=== PATIENT | female | born 1950 | race African-American/Black ===

== ENCOUNTER 2016-09-25 13:56 | Emergency (ER) ==
[2016-09-25 14:27] LABS: URINE CULTURE PL NEEDED? NO; URINE SOURCE CLEAN CATCH
[2016-09-25 14:39] LABS: BILIRUBIN URINE NEGATIVE (NEGATIVE); BLOOD URINE NEGATIVE (NEGATIVE); CLARITY CLEAR (CLEAR); COLOR YELLOW; LEUKOCYTES URINE NEGATIVE (NEGATIVE); NITRITE URINE NEGATIVE (NEGATIVE); PROTEIN URINE NEGATIVE (NEGATIVE); SP GRAVITY URINE 1.015; UROBILINOGEN URINE 1+(1 mg/dL)
[2016-09-25 14:50] LABS: URINE EPITHELIAL CELLS <10 /HPF (<10)
--- NOTE | 2016-09-25 15:06 | PROVIDER DOCUMENTATION ---
HPI-Abdominal Pain/GI Problem <Filippo Lancaster - Last Filed: 09/25/16 16:51> - General Source: patient, family - History of Present Illness-ABD Nature of Presenting Problems: pt is a 66 y/o f present to the er with c/o stomach pain. pt states this stomach pain started a couple of days ago but has gotten worse when she woke up this morning.the pain comes and goes. pt is a smoker. family states she has not been drinking enough water. pt is crying while lying in the bed. family at bedside. pt denies fever, chills, hematuria, hx of kidney stones. Pt states when she goes to the rest room if feels like she has to pee alot but its only a little bit that comes out. Abdominal Pain Onset Location: reports: RLQ, LLQ Pain Radiation: reports: back Quality of Pain: reports: aching Severity in ED: reports: moderate Onset/Duration: reports: 2 days ago Timing: reports: still present, intermittent Activities at Onset: reports: none Exposure to sick contacts?: No Modifying Factors: improves with: nothing Associated Symptoms: reports: back/neck pain. denies: cough, diaphoresis, diarrhea, dizziness, fever/chills Last BM: last night Similar Symptoms Previously?: No Recently seen or treated by another doctor?: No <Betsey Rodríguez - Last Filed: 09/25/16 16:52> - General Chief Complaint: Abdominal Pain Stated Complaint: ABD PAIN Time Seen by Provider: 09/25/16 15:00 Allergies/Adverse Reactions: Patient Allergies Allergy/AdvReac Type Severity Reaction Status Date / Time morphine Allergy ITCHING Verified 12/10/13 10:01 Penicillins Allergy ITCHING Verified 12/10/13 10:01 Home Medications: Home Medication List Medication Instructions Recorded Confirmed Last Taken Type Hydrochlorothiazide 25 mg PO DAILY 12/10/13 09/25/16 12/09/13 21:30 History Levothyroxine [Synthroid] 75 microgm PO DAILY 12/10/13 09/25/16 12/09/13 21:30 History Omeprazole [Prilosec] 20 mg PO DAILY 12/10/13 09/25/16 12/09/13 21:30 History Ramipril 20 mg PO DAILY 12/10/13 09/25/16 12/09/13 21:30 History Albuterol Sulfate Inhaler 2 puff INH Q6H PRN PRN #1 inhaler 09/07/15 09/25/16 Unknown Rx [Ventolin Hfa] Acetaminophen with Codeine 1 each PO Q4H PRN PRN #20 tablet 09/25/16 Unknown Rx [Tylenol with Codeine #3] Bupropion S.r. [Wellbutrin Sr] 100 mg PO DAILY 09/25/16 09/25/16 Unknown History Ciprofloxacin HCl [Cipro] 500 mg PO BID #20 tablet 09/25/16 Unknown Rx Donepezil [Aricept] 10 mg PO DAILY 09/25/16 09/25/16 Unknown History Metronidazole [Flagyl] 500 mg PO TID #30 tablet 09/25/16 Unknown Rx Nitrofurantoin Monohyd/M-Cryst 100 mg PO BID 09/25/16 09/25/16 Unknown History [Macrobid 100 mg Capsule] PRAVAstatin [Pravachol] 40 mg PO HS 09/25/16 09/25/16 Unknown History Tramadol [Ultram] 50 mg PO Q8HR 09/25/16 09/25/16 Unknown History Review of Systems - Adult - REVIEW OF SYSTEMS - ADULT Constitutional: denies: chills, fever, fatique Eyes: reports: no symptoms reported Ears, Nose, Mouth & Throat: reports: no symptoms reported Cardiovascular: reports: no symptoms reported Respiratory: reports: no symptoms reported Gastrointestinal: reports: abdominal pain. denies: hematemesis, diarrhea, difficulty swallowing, rectal bleeding, vomiting Genitourinary: reports: frequency, urgency. denies: dysuria, discharge, hematuria Musculoskeletal: reports: no symptoms reported Integumentary: reports: no symptoms reported Neurological: reports: no symptoms reported Psychiatric: reports: no symptoms reported Endocrine: reports: no symptoms reported Hematologic/Lymphatic: reports: no symptoms reported Allergic/Immunologic: reports: no symptoms reported All Other Systems: Reviewed and Negative <Betsey Rodríguez - Last Filed: 09/25/16 16:52> Past History - Adult - PAST MEDICAL HISTORY-ADULT Review of Records: reports: Old Records Reviewed, Nursing Assessment Review, Medications Reviewed, Social history reviewed & non-contributory. <Filippo Lancaster - Last Filed: 09/25/16 16:51> - PAST MEDICAL HISTORY-ADULT Review of Records: reports: Nursing Assessment Review Major Childhood Illnesses: reports: denies history Cardiovascular: reports: HTN, hyperlipidemia Gastrointestinal: reports: cancer (stomach cancer; malt lymphoma, adenocarcinoma ), GERD Endocrine/Immune: reports: Diabetes - IMMUNIZATION STATUS Childhood Immunizations: See Nurse Assessment Flu Vaccine: See Nurse Assessment - SOCIAL HISTORY Smoking: cigarettes, greater than 1 pack/day Provider spent 3-5 mins advising pt. on dangers of tobacco.: Discussed manners to quit use, and f/u contacts for add'l counseling. Substance Use: none/never Alcohol Use Frequency: never <Betsey Rodríguez - Last Filed: 09/25/16 16:52> Physical Exam-General - PHYSICAL EXAM-ADULT Initial Vital Signs Reviewed: Yes - CONSTITUTIONAL General Appearance: appears well, alert, mild distress - EYES Eyes: PERRL/EOMI, pink conjunctivae - HEAD, EARS, NOSE, MOUTH & THROAT HENMT: moist mucous membranes, normal ENT inspection - NECK Neck: non-tender, full range of motion - RESPIRATORY Respiratory: chest non-tender, lungs clear, normal breath sounds, no pleuratic chest pain, no respiratory distress, no accessory muscle use - CARDIOVASCULAR Cardiovascular: normal peripheral pulses, regular rate, rhythm - GASTROINTESTINAL (ABDOMEN) Abdominal Exam: normal bowel sounds, non tender, soft, tenderness (TTP lower abdomen) - MUSCULOSKELETAL Extremity: normal range of motion, non-tender, normal gait, normal inspection, no pedal edema, no calf tenderness, normal capillary refill - SKIN Integumentary: normal color, normal turgor, warm/dry - NEUROLOGIC Neurologic: grossly normal, no motor/sensory deficits - PSYCHIATRIC Psych/Mental Status: normal mood/affect, normal thought content, normal thought process, oriented x 3, tearful <Betsey Rodríguez - Last Filed: 09/25/16 16:52> Progress - PLAN OF CARE/RESULTS Progress/Plan/Lab Results: Laboratory Tests 09/25/16 14:11 Urine Source CLEAN CATCH Urine Color YELLOW Urine Clarity CLEAR Urine pH 5.0 Ur Specific [place] 1.015 Urine Protein NEGATIVE Urine Ketones NEGATIVE Urine Blood NEGATIVE Urine Nitrite NEGATIVE Urine Bilirubin NEGATIVE Urine Urobilinogen 1+(1 mg/dL) Urine Microscopic RBC Not Reportable Urine WBC NEGATIVE Ur Epithelial Cells <10 Urine Bacteria 1+ Urine Glucose 3+(500 mg/dL) A Orders Category Date Time Status FLAT/UPRIGHT ABD/1 VIEW CHEST [RAD] Stat Exams 09/25/16 14:59 Taken AMYLASE [CHEM] Stat Lab 09/25/16 14:58 Ordered CBC WITH DIFF [HEME] Stat Lab 09/25/16 14:58 Ordered COMPREHENSIVE METABOLIC PANEL [CHEM] Stat Lab 09/25/16 14:58 Ordered LIPASE [CHEM] Stat Lab 09/25/16 14:[address] W/POSS RFLX CULT [URINALYSIS] Stat Lab 09/25/16 14:[address] W/POSS RFLX CULT [URINALYSIS] Stat Lab 09/25/16 15:06 Ordered URINE DRUG SCREEN PL Stat Lab 09/25/16 15:06 Ordered Vital Signs - 24 hr 09/25/16 14:02 Temperature 97.9 F Pulse Rate 93 H Respiratory 18 Rate Blood Pressure 122/77 O2 Sat by Pulse 100 Oximetry spoke with pt and family about current lab result. Pt and family trying to come up with the list of all her medications that she takes. Called her pharmacy to get a list. Laboratory Tests 09/25/16 09/25/16 09/25/16 14:11 15:20 15:20 WBC 4.24 L RBC 3.80 L Hgb 13.9 Hct 40.7 MCV 107.1 H MCH 36.6 H MCHC 34.2 RDW Std Deviation 15.5 H Plt Count 136 MPV 9.5 Immature Gran % (Auto) 0.0 Neut % (Auto) 54.0 Lymph % (Auto) 31.8 [place] % (Auto) 11.6 H Eos % (Auto) 2.4 Baso % (Auto) 0.2 Immature Gran # (Auto) 0.00 Neut # (Auto) 2.29 Lymph # (Auto) 1.35 [place] # (Auto) 0.49 Eos # (Auto) 0.10 Baso # (Auto) 0.01 Segmented Neutrophils 44 Lymphocytes 34 Monocytes 15 H Eosinophils 2 Atypical Lymphocytes 5.0 Anisocytosis OCCASIONAL Macrocytosis 2+ Sodium 139 Potassium 3.5 Chloride 99 Carbon Dioxide 30 Anion Gap 10 BUN 16 Creatinine 1.1 H Estimated GFR/1.73 m2 50 BUN/Creatinine Ratio 15 Glucose 140 H Calculated Osmolality 281 Calcium 10.3 H Total Bilirubin 0.40 AST 23 ALT 17 Alkaline Phosphatase 100 Total Protein 7.5 Albumin 4.6 Globulin 3.0 Albumin/Globulin Ratio 2.0 Amylase 80 Lipase 32 Urine Source CLEAN CATCH Urine Color YELLOW Urine Clarity CLEAR Urine pH 5.0 Ur Specific [place] 1.015 Urine Protein NEGATIVE Urine Ketones NEGATIVE Urine Blood NEGATIVE Urine Nitrite NEGATIVE Urine Bilirubin NEGATIVE Urine Urobilinogen 1+(1 mg/dL) Urine Microscopic RBC Not Reportable Urine WBC NEGATIVE Ur Epithelial Cells <10 Urine Bacteria 1+ Urine Glucose 3+(500 mg/dL) A - XRAY 1 XRAY: Bilateral XRAY Study: Abdomen (The lungs are well expanded. patient has a left-sided port- a catheter. Heart is enlarged. no pneumothorax) Impression: Normal - CT/MRI 1 CT Study: Kidneys (Renal stone search) Impression: Abnormal (No renal stone, no hydronephrosis, apparent mild diverticulitis at mid sigmoid colon;no abcscess, no free air) - ULTRASOUND (By Radiology) 1 US Study: other (carotid) Impression: Normal (no stenosis within either CCA or ICA) <Betsey Rodríguez - Last Filed: 09/25/16 16:52> Departure - Departure Time of Disposition Order: 16:49 Certified Medical Emergency: Emergent <Filippo Lancaster - Last Filed: 09/25/16 16:51> - Departure Certified Medical Emergency: Emergent <Betsey Rodríguez - Last Filed: 09/25/16 16:52> - Departure DIAGNOSIS: Diverticulitis Qualifiers: Diverticulitis site: large intestine Diverticulitis bleeding: without bleeding Diverticulitis complication: without perforation or abscess Qualified Code(s): K57.32 - Diverticulitis of large intestine without perforation or abscess without bleeding Disposition: HOME 01 Condition: Stable Additional Instructions: FOLLOW UP WITH MD ED Follow Up Instructions: You have been treated by a care provider in the Emergency Department. These instructions are being provided to you so you can have an understanding of how to care for yourself upon discharge. Upon discharge from the Emergency Department, you are responsible for making arrangements for follow-up care by a physician of your choice. Take all prescribed medications as directed. Return to the Emergency Department immediately for any new or worsening symptoms. You may call the Physician Referral phone number at [phone] to obtain a list of Physicians who are taking new patients. Prescriptions: Acetaminophen with Codeine [Tylenol with Codeine #3] 1 each PO Q4H PRN PRN #20 tablet PRN Reason: Pain Ciprofloxacin HCl [Cipro] 500 mg PO BID #20 tablet Metronidazole [Flagyl] 500 mg PO TID #30 tablet Referrals: Jaqueline Chowdhury CRNP [Primary Care Provider] - Instructions: Diverticulitis, [id number] Attestation - Scribe Verification/Attestation Scribe:: Betsey Rodríguez Acting as Scribe for:: Filippo Lancaster Scribe documention review:: This chart was documented by a scribe and accurately reflects the service the provider performed and the decisions made by the provider. <Betsey Rodríguez - Last Filed: 09/25/16 16:52> Physician Attestation
--- NOTE | 2016-09-25 15:40 | Diag Imaging Result Document ---
PROCEDURE NAME: FLAT/UPRIGHT ABD/1 VIEW CHEST - 09/25/2016 FLAT AND UPRIGHT CHEST, 3 VIEWS: FINDINGS: The lungs are well expanded. Patient has a left-sided [id number]. Heart is not enlarged. No pneumothorax. No free air beneath the diaphragm. There are multiple surgical clips in the abdomen. No bowel obstruction. No organomegaly. No abnormal abdominal calcifications. IMPRESSION: No acute abnormality.
[2016-09-25 15:49] LABS: BASO% 0.2 % (0.0-0.8); EOS% 2.4 % (0.0-10.0); HEMATOCRIT 40.7 % (37.0-47.0); HEMOGLOBIN 13.9 g/dL (12.0-16.0); LYMPH# 1.35 X1000 (1.2-3.4); LYMPH% 31.8 % (20.5-51.1); MANUAL DIFF NEEDED? YES; MCH 36.6 PG (27-31); MCHC 34.2 g/dL (33-37); MCV 107.1 FL (81-99); MONO# 0.49 X1000 (0.11-0.59); MONO% 11.6 % (1.7-9.3); MPV 9.5 FL (7.4-10.4); PLT 136 X1000 (130-400)
[2016-09-25 15:51] LABS: ALBUMIN 4.6 g/dL (3.5-5.0); CALCIUM 10.3 mg/dL (8.8-10.2); POTASSIUM 3.5 mmol/L (3.5-5.1); TOTAL BILIRUBIN 0.4 mg/dL (0.20-1.00); TOTAL PROTEIN 7.5 g/dL (6.3-8.3)
[2016-09-25 15:55] LABS: EOS 2 % (1-10); LYMPHS 34 % (21-51); MONO 15 % (1-9)
[2016-09-25] MEDS ORDERED: TYLENOL WITH CODEINE #3 PO ONE (16:08)
[2016-09-25] MEDS ORDERED: PHENERGAN PO ONE (16:08)
[2016-09-25 16:40] VITALS: BP 133/80
--- NOTE | 2016-09-25 17:02 | Diag Imaging Result Document ---
PROCEDURE NAME: RENAL STONE SEARCH - 09/25/2016 CT RENAL STONE SEARCH WITHOUT CONTRAST: FINDINGS: A dose reduction protocol was used. Compared with a with contrast CT abdomen of 04/16/2014. There is no hydronephrosis or perinephric edema identified. There is no renal stone identified. There is no evidence of bowel obstruction. There is colonic diverticulosis which is most prominent at the distal descending and sigmoid colon. There are mild inflammatory changes at the mid sigmoid colon. This is suspicious for mild diverticulitis. There is no abscess identified. There is no free air. IMPRESSION: 1. No evidence of renal stone or hydronephrosis. 2. Mild inflammatory changes at the mid sigmoid colon, suspicious for mild diverticulitis. No abscess. No free air.
[2016-09-26 03:26] LABS: UR AMPHETAMINES QUAL NONE DETECTED (NONE DETECT); UR BARBITUATES QUAL NONE DETECTED (NONE DETECT); UR BENZODIAZEPIN QUAL NONE DETECTED (NONE DETECT); UR CANNABINOIDS QUAL NONE DETECTED (NONE DETECT); UR COCAINE QUAL NONE DETECTED (NONE DETECT); UR MDMA QUAL NONE DETECTED (NONE DETECT); UR METHADONE QUAL NONE DETECTED (NONE DETECT); UR METHAMPHETAMINE QUAL NONE DETECTED (NONE DETECT); UR OPIATES QUAL NONE DETECTED (NONE DETECT); UR OXYCODONE QUAL NONE DETECTED (NONE DETECT); UR PCP QUAL NONE DETECTED (NONE DETECT); UR TCA QUAL NONE DETECTED (NONE DETECT)
== END 2016-09-25 16:58 | disposition home or self-care (01) ==
LOC: P.ED 13:56
DX: K57.32 Diverticulitis of large intestine without perforation or abscess without bleeding (principal); R10.31 Right lower quadrant pain; R10.32 Left lower quadrant pain; R35.0 Frequency of micturition; R39.15 Urgency of urination; I10 Essential (primary) hypertension; E78.5 Hyperlipidemia, unspecified; E11.9 Type 2 diabetes mellitus without complications; Z79.899 Other long term (current) drug therapy; Z85.028 Personal history of other malignant neoplasm of stomach; C88.4 Extranodal marginal zone B-cell lymphoma of mucosa-associated lymphoid tissue [MALT-lymphoma]; K21.9 Gastro-esophageal reflux disease without esophagitis; F17.210 Nicotine dependence, cigarettes, uncomplicated; Z71.6 Tobacco abuse counseling
CPT/HCPCS: 74022; 74176; 80053; 80305; 81001; 82150; 83690; 85025

== ENCOUNTER 2016-10-13 09:52 | Emergency (ER) ==
[2016-10-13 10:50] LABS: BASO% 0.3 % (0.0-0.8); EOS# 0.06 X1000 (0.0-0.7); EOS% 1.7 % (0.0-10.0); HEMATOCRIT 39.7 % (37.0-47.0); HEMOGLOBIN 14.2 g/dL (12.0-16.0); LYMPH# 1.91 X1000 (1.2-3.4); LYMPH% 53.4 % (20.5-51.1); MANUAL DIFF NEEDED? NO; MCH 38.1 PG (27-31); MCHC 35.8 g/dL (33-37); MCV 106.4 FL (81-99); MONO# 0.34 X1000 (0.11-0.59); MONO% 9.5 % (1.7-9.3); MPV 9.5 FL (7.4-10.4); NEUT% 35.1 % (42.2-75.2); PLT 137 X1000 (130-400); RBC 3.73 XMIL (4.2-5.4)
[2016-10-13 10:58] LABS: URINE CULTURE NEEDED? NO; URINE MICRO REVIEW NEEDED? NO; URINE SOURCE CLEAN CATCH
[2016-10-13 11:06] LABS: BILIRUBIN URINE NEGATIVE (NEGATIVE); BLOOD URINE NEGATIVE (NEGATIVE); COLOR YELLOW; GLUCOSE URINE >1000 mg/dL (NEGATIVE); LEUKOCYTES URINE NEGATIVE (NEGATIVE); NITRITE URINE NEGATIVE (NEGATIVE); PH URINE 5.5; PROTEIN URINE TRACE mg/dL (NEGATIVE); SP GRAVITY URINE 1.034; TURBIDITY URINE CLEAR (CLEAR); UROBILINOGEN URINE NORMAL (NORMAL)
[2016-10-13 11:07] LABS: UR EPITHELIAL CELLS <10 /HPF (<10); URINE BACTERIA NEGATIVE /HPF; URINE RBC <10 /HPF (<10); URINE WBC <10 /HPF (<10)
[2016-10-13 11:12] LABS: AGAP 14; ALBUMIN 4.4 g/dL (3.5-5.0); ALKALINE PHOSPHATASE 75 U/L (32-104); AMYLASE 96 U/L (20-200); BUN 19 mg/dL (8-22); CHLORIDE 103 mmol/L (98-107); COSMO 287; GOT 20 U/L (10-30); GPT 19 U/L (10-36); LIPASE 33 U/L (13-60); SODIUM 142 mmol/L (136-145); TCO2 25 mmol/L (25-35); TOTAL BILIRUBIN 0.32 mg/dL (0.20-1.00); TOTAL PROTEIN 7.1 g/dL (6.3-8.3)
--- NOTE | 2016-10-13 13:45 | PROVIDER DOCUMENTATION ---
HPI-Abdominal Pain/GI Problem - General Chief Complaint: Abdominal Pain Stated Complaint: LOWER ABD PAIN Time Seen by Provider: 10/13/16 13:08 Source: patient Allergies/Adverse Reactions: Patient Allergies Allergy/AdvReac Type Severity Reaction Status Date / Time ciprofloxacin [From Cipro] Allergy RASH Verified 10/13/16 13:10 ciprofloxacin HCl * Allergy RASH Verified 10/13/16 13:10 [From Cipro] morphine Allergy ITCHING Verified 12/10/13 10:01 Penicillins Allergy ITCHING Verified 12/10/13 10:01 Home Medications: Home Medication List Medication Instructions Recorded Confirmed Last Taken Type Hydrochlorothiazide 25 mg PO DAILY 12/10/13 09/25/16 12/09/13 21:30 History Levothyroxine [Synthroid] 75 microgm PO DAILY 12/10/13 09/25/16 12/09/13 21:30 History Omeprazole [Prilosec] 20 mg PO DAILY 12/10/13 09/25/16 12/09/13 21:30 History Ramipril 20 mg PO DAILY 12/10/13 09/25/16 12/09/13 21:30 History Albuterol Sulfate Inhaler 2 puff INH Q6H PRN PRN #1 inhaler 09/07/15 09/25/16 Unknown Rx [Ventolin Hfa] Acetaminophen with Codeine 1 each PO Q4H PRN PRN #20 tablet 09/25/16 Unknown Rx [Tylenol with Codeine #3] Bupropion S.r. [Wellbutrin Sr] 100 mg PO DAILY 09/25/16 09/25/16 Unknown History Ciprofloxacin HCl [Cipro] 500 mg PO BID #20 tablet 09/25/16 Unknown Rx Donepezil [Aricept] 10 mg PO DAILY 09/25/16 09/25/16 Unknown History Metronidazole [Flagyl] 500 mg PO TID #30 tablet 09/25/16 Unknown Rx Nitrofurantoin Monohyd/M-Cryst 100 mg PO BID 09/25/16 09/25/16 Unknown History [Macrobid 100 mg Capsule] PRAVAstatin [Pravachol] 40 mg PO HS 09/25/16 09/25/16 Unknown History Tramadol [Ultram] 50 mg PO Q8HR 09/25/16 09/25/16 Unknown History - History of Present Illness-ABD Nature of Presenting Problems: 66 Yo/ F presents to the ER with the complaint of Abdominal pain this morning. Patient states pain started last week and went to the [facility] ED. Patient stated pain comes and go and denies any N/V/D and bloating in stomach. denies all other symptoms. no other voiced complaints. Abdominal Pain Onset Location: reports: generalized abdomen Pain Radiation: reports: other (generalized) Severity in ED: reports: mild Onset/Duration: reports: this morning Associated Symptoms: denies: diarrhea, vomiting Review of Systems - Adult - REVIEW OF SYSTEMS - ADULT Constitutional: denies: chills, fever Eyes: reports: no symptoms reported Ears, Nose, Mouth & Throat: reports: no symptoms reported Cardiovascular: denies: chest pain, palpitations Respiratory: denies: cough, shortness of breath, wheezing Gastrointestinal: reports: constipation. denies: vomiting Genitourinary: reports: no symptoms reported Musculoskeletal: reports: no symptoms reported Integumentary: reports: no symptoms reported Neurological: reports: no symptoms reported Psychiatric: reports: no symptoms reported Endocrine: reports: no symptoms reported Hematologic/Lymphatic: reports: no symptoms reported Allergic/Immunologic: reports: no symptoms reported All Other Systems: Reviewed and Negative Past History - Adult - PAST MEDICAL HISTORY-ADULT Review of Records: reports: Nursing Assessment Review, Medications Reviewed Major Childhood Illnesses: reports: denies history Cardiovascular: reports: HTN, hyperlipidemia Gastrointestinal: reports: cancer (stomach cancer; malt lymphoma, adenocarcinoma ), GERD Genitourinary: reports: cancer Endocrine/Immune: reports: Diabetes - IMMUNIZATION STATUS Childhood Immunizations: See Nurse Assessment Flu Vaccine: See Nurse Assessment - SOCIAL HISTORY Smoking: cigarettes Provider spent 3-5 mins advising pt. on dangers of tobacco.: Discussed manners to quit use, and f/u contacts for add'l counseling. Physical Exam-General - PHYSICAL EXAM-ADULT Initial Vital Signs Reviewed: Yes - CONSTITUTIONAL General Appearance: appears well, alert, no apparent distress - NECK Neck: full range of motion, supple - RESPIRATORY Respiratory: lungs clear, normal breath sounds, no pleuratic chest pain - CARDIOVASCULAR Cardiovascular: normal peripheral pulses, regular rate, rhythm - GASTROINTESTINAL (ABDOMEN) Abdominal Exam: normal bowel sounds, non tender, soft - SKIN Integumentary: normal color, warm/dry - NEUROLOGIC Neurologic: grossly normal, no motor/sensory deficits - PSYCHIATRIC Psych/Mental Status: normal mood/affect, normal thought content, normal thought process, oriented x 3 Progress - PLAN OF CARE/RESULTS Progress/Plan/Lab Results: discussed discharge with patient. patient verbally agrees and understands. Vital Signs - 24 hr 10/13/16 10:00 Temperature 98.1 F Pulse Rate 75 Respiratory 20 Rate Blood Pressure 141/84 O2 Sat by Pulse 97 Oximetry Orders Category Date Time Status AMYLASE [CHEM] Stat Lab 10/13/16 10:26 Completed CBC WITH ELECTRONIC DIFF [HEME] Stat Lab 10/13/16 10:26 Completed COMPREHENSIVE METABOLIC PANEL [CHEM] Stat Lab 10/13/16 10:26 Completed LIPASE [CHEM] Stat Lab 10/13/16 10:26 Completed URINALYSIS W/POSS RFLX CULT [URINALYSIS] Stat Lab 10/13/16 10:27 Completed Laboratory Tests 10/13/16 10/13/16 10/13/16 10:26 10:26 10:27 WBC 3.58 L RBC 3.73 L Hgb 14.2 Hct 39.7 MCV 106.4 H MCH 38.1 H MCHC 35.8 RDW Std Deviation 15.8 H Plt Count 137 MPV 9.5 Immature Gran % (Auto) 0.0 Neut % (Auto) 35.1 L Lymph % (Auto) 53.4 H [place] % (Auto) 9.5 H Eos % (Auto) 1.7 Baso % (Auto) 0.3 Immature Gran # (Auto) 0.00 Neut # (Auto) 1.26 L Lymph # (Auto) 1.91 [place] # (Auto) 0.34 Eos # (Auto) 0.06 Baso # (Auto) 0.01 Sodium 142 Potassium 4.0 Chloride 103 Carbon Dioxide 25 Anion Gap 14 BUN 19 Creatinine 1.0 H Estimated GFR/1.73 m2 > 60 BUN/Creatinine Ratio 19 Glucose 132 H Calculated Osmolality 287 Calcium 10.0 Total Bilirubin 0.32 AST 20 ALT 19 Alkaline Phosphatase 75 Total Protein 7.1 Albumin 4.4 Globulin 2.7 Albumin/Globulin Ratio 1.6 Amylase 96 Lipase 33 Urine Source CLEAN CATCH Urine Color YELLOW Urine Turbidity CLEAR Urine pH 5.5 Ur Specific [place] 1.034 Urine Protein TRACE A Ur Glucose (Stick) >1000 A Ur Ketones (Stick) TRACE A Urine Blood NEGATIVE Urine Nitrite NEGATIVE Urine Bilirubin NEGATIVE Urobilinogen Dipstick NORMAL Urine Leukocytes NEGATIVE Urine WBC (Auto) <10 Urine RBC (Auto) <10 U Epithel Cells (Auto) <10 Urine Bacteria (Auto) NEGATIVE Departure - Departure Time of Disposition Order: 13:46 DIAGNOSIS: Left lower quadrant pain Disposition: HOME 01 Certified Medical Emergency: Emergent Condition: Stable Additional Instructions: Take medication as prescribed. Follow up with Dr Alvarado. ED Follow Up Instructions: You have been treated by a care provider in the Emergency Department. These instructions are being provided to you so you can have an understanding of how to care for yourself upon discharge. Upon discharge from the Emergency Department, you are responsible for making arrangements for follow-up care by a physician of your choice. Take all prescribed medications as directed. Return to the Emergency Department immediately for any new or worsening symptoms. You may call the Physician Referral phone number at [phone] to obtain a list of Physicians who are taking new patients. Referrals: Allyn Alvarado MD [STAFF PHYSICIAN] - Instructions: Abdominal Pain, Adult, [id number] Attestation - Scribe Verification/Attestation Scribe:: Song Diaz Acting as Scribe for:: Balbir Mayfield Scribe documention review:: This chart was documented by a scribe and accurately reflects the service the provider performed and the decisions made by the provider. Physician Attestation - Physician Attestation I, the provider, attest to the following statement:: Balbir Mayfield Physician documentation Attestation:: This documentation recorded by the scribe accurately reflects the service I personally performed and the decisions made by me.
[2016-10-13 14:23] VITALS: BP 167/78
== END 2016-10-13 14:22 | disposition home or self-care (01) ==
LOC: ED 09:52
DX: R10.32 Left lower quadrant pain (principal); K59.00 Constipation, unspecified; I10 Essential (primary) hypertension; E78.5 Hyperlipidemia, unspecified; Z85.028 Personal history of other malignant neoplasm of stomach; C88.4 Extranodal marginal zone B-cell lymphoma of mucosa-associated lymphoid tissue [MALT-lymphoma]; K21.9 Gastro-esophageal reflux disease without esophagitis; E11.9 Type 2 diabetes mellitus without complications; Z79.899 Other long term (current) drug therapy; F17.210 Nicotine dependence, cigarettes, uncomplicated; Z71.6 Tobacco abuse counseling
CPT/HCPCS: 80053; 81001; 82150; 83690; 85025

== ENCOUNTER 2016-11-27 20:16 | Inpatient (IN) ==
[2016-11-27] MEDS ORDERED: ZOFRAN IV ONE (20:37)
[2016-11-27] MEDS ORDERED: DILAUDID IV ONE ×2 (20:37→22:37)
[2016-11-27 21:20] LABS: BASO% 0.2 % (0.0-0.8); EOS# 0.01 X1000 (0.0-0.7); EOS% 0.2 % (0.0-10.0); HEMATOCRIT 35.8 % (37.0-47.0); HEMOGLOBIN 12.5 g/dL (12.0-16.0); LYMPH# 1.63 X1000 (1.2-3.4); LYMPH% 40.3 % (20.5-51.1); MANUAL DIFF NEEDED? NO; MCH 37.9 PG (27-31); MCHC 34.9 g/dL (33-37); MCV 108.5 FL (81-99); MONO# 0.44 X1000 (0.11-0.59); MONO% 10.9 % (1.7-9.3); MPV 8.8 FL (7.4-10.4); NEUT% 48.4 % (42.2-75.2); PLT 101 X1000 (130-400)
[2016-11-27 21:32] LABS: ALBUMIN 4.4 g/dL (3.5-5.0); POTASSIUM 2.7 mmol/L (3.5-5.1); TOTAL BILIRUBIN 0.5 mg/dL (0.20-1.00); TOTAL PROTEIN 6.6 g/dL (6.3-8.3)
[2016-11-27] MEDS ORDERED: NS 1,000 ML IV ONE (21:37)
[2016-11-27] MEDS ORDERED: POTASSIUM CHLORIDE 20% LIQUID PO ONE (21:37)
[2016-11-28] MEDS ORDERED: NS 1,000 ML IV ONE (00:20)
[2016-11-28] MEDS ORDERED: ZOFRAN IV PRN (02:03)
[2016-11-28] MEDS: DILAUDID IV PRN ×2 (02:56→09:50)
[2016-11-28 06:27] LABS: URINE MICROSCOPIC NEEDED? NO; URINE SOURCE CATH
[2016-11-28 07:21] LABS: BILIRUBIN URINE NEGATIVE (NEGATIVE); BLOOD URINE NEGATIVE (NEGATIVE); CLARITY CLEAR (CLEAR); COLOR YELLOW; LEUKOCYTES URINE NEGATIVE (NEGATIVE); NITRITE URINE NEGATIVE (NEGATIVE); PROTEIN URINE NEGATIVE (NEGATIVE); UROBILINOGEN URINE NORMAL
[2016-11-28] MEDS ORDERED: ULTRAM PO PRN (09:55)
[2016-11-28] MEDS ORDERED: VENTOLIN HFA INH PRN (09:55)
[2016-11-28] MEDS ORDERED: LACTULOSE PO ONE (10:54)
--- NOTE | 2016-11-28 12:36 | CONSULTATION ---
DATE OF CONSULTATION: 11/28/2016 SUBJECTIVE: Patient was admitted by the emergency room physician last night for hypokalemia and pain management. I had operated on the patient yesterday morning, and the patient adamantly wanted to be discharged yesterday afternoon and she was discharged. She then presented to the emergency room for pain without notifying me of this presentation. She had called her primary care physician instead of the surgeon, myself, for assistance, and he had told her to go to the emergency room. I had adamantly told the patient to notify me if she was having any problems whatsoever. Patient has been admitted by the hospitalist for pain management. She is feeling fine now. She received some Dilaudid through the evening, but no other pain medicine has been given, I am suspicioning since she is feeling good now and wanting to go home that she will be discharged by the hospitalist. I have not spoken with the hospitalist today. I will plan on seeing the patient for her routine postoperative care as desired, and I have again explained to the patient and her daughter the need to notify me no matter what time day or night if there was any problems related to the surgery. cc: David Ocasio MD
--- NOTE | 2016-11-28 15:23 | HISTORY AND PHYSICAL ---
CHIEF COMPLAINT: Abdominal pain. HISTORY OF PRESENT ILLNESS: This is a 66-year-old female who presented to the emergency room complaining of low abdominal pain. She underwent enterocele repair with anterior and posterior compartment defect repair with circle tissue earlier on the morning prior to in the day. This was performed by Dr. David Ocasio. According to Dr. Ocasio's note he was planning on keeping the patient overnight to assure that she could void and the patient adamantly refused, wanted to be discharged. She was unable to void, began to have low abdominal suprapubic pain, therefore she presented to the emergency room. She was found have a potassium of 2.7. She was given 1.5 mg of Dilaudid in the emergency room and then admitted for further evaluation and treatment. PAST MEDICAL HISTORY: Type 2 diabetes, hypercholesterolemia, hypertension, hyperthyroid and prior stomach cancer. PAST SURGICAL HISTORY: Abdominal hysterectomy, left knee replacement, L5-S1 anterior fusion, appendectomy and enterocele and AP repair. ALLERGIES: Penicillin, morphine, Cipro and codeine all which cause itching and rash. HOME MEDICATIONS: Prilosec 40 at bedtime, Invokana 1 tablet at bedtime, Ventolin inhaler 2 puffs q.6 hours p.r.n., Wellbutrin SR 150 b.i.d., Synthroid 75 mcg at bedtime, hydrochlorothiazide 25 mg at bedtime, Aricept 10 at bedtime, Colace 100 b.i.d., Ultram 50 q.8 hours p.r.n., Altace 10 at bedtime, Pravachol 40 at bedtime. REVIEW OF SYSTEMS: A 14 point review of systems is discussed with the patient with pertinent positives stated in HPI. She denied chest pain, palpitations, syncope, dizziness, cough, fever, chills, PND, orthopnea, nausea, vomiting, diarrhea, constipation, black or bloody vomitus, black or bloody stools, hematuria. PHYSICAL EXAMINATION: GENERAL: This is a very pleasant 66-year-old female who is sitting on the bedside in no distress. VITAL SIGNS: Blood pressure is 150/80 with a heart rate of 67, respirations are 20, temperature is 98.3 degrees oral with room air saturations of 98-99%. HEENT: Head is normocephalic, atraumatic. Pupils equal, round, react to light. EOMs are intact. Sclerae are anicteric. Mucous membranes are moist. NECK: Supple with trachea midline. CARDIOVASCULAR: Regular rate and rhythm. S1 and S2 appreciated. PULMONARY: Breath sounds are clear with no increased work of breathing noted. GASTROINTESTINAL: Abdomen is soft, nontender, nondistended with bowel sounds in all 4 quadrants. BACK: No CVAT. No spine tenderness. EXTREMITIES: No clubbing, cyanosis, or edema. Calves are nontender and pulses are palpable x4. DIAGNOSTICS: WBC is 4.04 with hemoglobin 12.5, hematocrit 35.8, and platelets of 101,000. Sodium is 136, potassium 2.7, BUN 18, creatinine 1.1 with a glucose of 138. Urinalysis is essentially negative. ASSESSMENT AND PLAN: 1. Suprapubic and low abdomen pain status post enterocele repair. 2. Urinary retention. 3. Diabetes mellitus type 2. 4. Hypertension. 5. Hypothyroidism. The patient has been admitted to the hospital. She was receiving IV hydration as well as IV pain medications. We will discontinue the IV pain medication as this will further add to her urinary retention. I did discuss the pain with the patient. She stated that she had suprapubic pain, she felt like she needed to go to the bathroom really bad and was unable. She was catheterized this morning at around 6 a.m. for 650 mL of urine and she states that her pain did subside at this time. We will scan her bladder, measure a strict I and O. We did discuss with Dr. Ocasio who performed her surgery yesterday and he has seen the patient. We will identify and continue her home medications. The patient will be instructed to attempt to void every 3 hours regardless of the urge and keep up with I and O. Further treatments pending hospital course. Dictated by FARHEEN Montesinos for Sridhar Beth MD cc: FARHEEN Montesinos MD
[2016-11-28] MEDS: NORCO-5 PO PRN (17:57)
[2016-11-28] MEDS: MYLICON PO PRN (17:59)
[2016-11-28] MEDS: COLACE PO SCH (20:57)
[2016-11-28] MEDS: WELLBUTRIN SR PO SCH (20:57)
[2016-11-28] MEDS ORDERED: MIRALAX PO SCH (21:00)
[2016-11-28] MEDS ORDERED: PRAVACHOL PO SCH (21:00)
[2016-11-28] MEDS ORDERED: PRILOSEC PO SCH (21:00)
[2016-11-28] MEDS ORDERED: ALTACE PO SCH (21:00)
[2016-11-28] MEDS ORDERED: SYNTHROID PO SCH (21:00)
[2016-11-28] MEDS ORDERED: ARICEPT PO SCH (21:00)
[2016-11-29] MEDS: NORCO-5 PO PRN ×2 (01:21→08:19)
[2016-11-29] MEDS: MYLICON PO PRN (01:30)
[2016-11-29 06:40] LABS: AGAP 8; ALBUMIN 3.9 g/dL (3.5-5.0); ALKALINE PHOSPHATASE 93 U/L (32-104); BUN 9 mg/dL (8-22); CALCIUM 8.7 mg/dL (8.8-10.2); CHLORIDE 103 mmol/L (98-107); COSMO 276; GOT 51 U/L (10-30); GPT 25 U/L (10-36); POTASSIUM 3.6 mmol/L (3.5-5.1); SODIUM 138 mmol/L (136-145); TCO2 27 mmol/L (25-35); TOTAL PROTEIN 6.2 g/dL (6.3-8.3)
[2016-11-29 06:47] LABS: HEMATOCRIT 33.8 % (37.0-47.0); HEMOGLOBIN 11.2 g/dL (12.0-16.0); MCH 36.7 PG (27-31); MCHC 33.1 g/dL (33-37); MCV 110.8 FL (81-99); MPV 9.5 FL (7.4-10.4); RBC 3.05 XMIL (4.2-5.4)
[2016-11-29] MEDS ORDERED: INVOKANA PO SCH (07:00)
[2016-11-29 07:21] VITALS: BP 148/87
[2016-11-29] MEDS: WELLBUTRIN SR PO SCH (08:19)
[2016-11-29] MEDS: COLACE PO SCH (08:19)
[2016-11-29] MEDS ORDERED: MIRALAX PO SCH (09:00)
[2016-11-29] MEDS ORDERED: LEVSIN-SL SL PRN (09:45)
[2016-11-29] MEDS ORDERED: ALTACE PO SCH (21:00)
--- NOTE | 2016-11-29 22:02 | DISCHARGE SUMMARY ---
ADMISSION DATE: 11/28/2016 DISCHARGE DATE: 11/29/2016 DIAGNOSES: 1. Urinary retention, status post enterocele repair, 11/28/2016. 2. Diabetes mellitus type 2. 3. Hypertension. 4. Hypothyroidism. CONSULTANTS: Dr. David Ocasio. HOSPITAL COURSE: Ms. Oseguera was admitted for urinary retention and suprapubic pain, being a few hours postop enterocele repair, with anterior and posterior compartment defect repair with point hope ira tissue. Bladder scan revealed 600 mL, for which she was straight-cathed. She was able to urinate 1 time after this, and she subsequently required straight cath 4 times. Wolf catheter was placed for discharge, to follow up with Dr. Ocasio in his office. The patient had been 5 days without having a bowel movement. She was given lactulose. She did have 2 large bowel movements. She has experienced bladder spasms after the catheter was placed, for which she was given Levsin sublingual. This did subside. PHYSICAL EXAMINATION: Cardiovascular: Regular rate and rhythm. S1 and S2 appreciated. Pulmonary: Breath sounds are clear, with no increased work of breathing noted. Gastrointestinal: Abdomen is soft, nontender, nondistended, with bowel sounds in all 4 quadrants. Extremities: No clubbing, cyanosis, or edema. Calves are nontender. Pulses are palpable x4. DISCHARGE MEDICATIONS: 1. Prilosec 40 mg at bedtime. 2. Invokana 1 tab at bedtime. 3. Ventolin inhaler as directed. 4. Wellbutrin SR 150 b.i.d. 5. Levothyroxine 75 mcg at bedtime. 6. Hydrochlorothiazide 25 mg at bedtime. 7. Aricept 10 at bedtime. 8. Colace 100 mg b.i.d. 9. Ultram 50 q.8 hours p.r.n. 10. Altace 20 mg at bedtime. 11. Pravachol 40 mg at bedtime. 12. Levsin sublingual 0.25 q.6 hours p.r.n. 13. [place] 5, 1-2 every 6 hours p.r.n. pain, #25, with no refills. DISCHARGE ACTIVITY: As tolerated. DISCHARGE DIET: Diabetic. DISCHARGE VITAL SIGNS: Blood pressure is 148/87, with a heart rate of 76, respirations are 16, temperature is 97.8 degrees oral, with room air saturation of 96%. FOLLOWUP: She is to call Dr. Ocasio's office in the morning to schedule appointment for a voiding trial. She is being discharged home in stable condition with family members. TIME SPENT: This is a greater than 30 minute discharge. Dictated by FARHEEN Montesinos for Sridhar Beth MD cc: FARHEEN Montesinos MD [facility]
--- NOTE | 2016-12-04 19:55 | PROVIDER DOCUMENTATION ---
This chart was entered by Fish Hernández Scribe, acting as scribe for Jordon Lerma DO. HPI-General Adult - General Chief Complaint: Post Op Complaint Stated Complaint: POST OP CHECK Time Seen by Provider: 11/27/16 20:33 Source: patient, family Allergies/Adverse Reactions: Patient Allergies Allergy/AdvReac Type Severity Reaction Status Date / Time ciprofloxacin [From Cipro] Allergy RASH Verified 10/13/16 13:10 ciprofloxacin HCl * Allergy RASH Verified 10/13/16 13:10 [From Cipro] codeine Allergy ITCHING Verified 11/28/16 01:51 morphine Allergy ITCHING Verified 12/10/13 10:01 Penicillins Allergy ITCHING Verified 12/10/13 10:01 Home Medications: Home Medication List Medication Instructions Recorded Confirmed Last Taken Type Albuterol Sulfate Inhaler 2 puff INH Q6H PRN PRN #1 inhaler 09/07/15 11/28/16 Unknown Rx [Ventolin Hfa] Bupropion S.r. [Wellbutrin Sr] 150 mg PO BID 09/25/16 11/28/16 Unknown History PRAVAstatin [Pravachol] 40 mg PO HS 09/25/16 11/28/16 Unknown History Tramadol [Ultram] 50 mg PO Q8HR PRN 09/25/16 11/28/16 Unknown History Docusate Sodium [Colace] 100 mg PO BID capsule 11/27/16 11/28/16 Unknown Rx Canagliflozin [Invokana] 1 tab PO QHS 11/28/16 11/28/16 Unknown History Donepezil [Aricept] 10 mg PO QHS 11/28/16 11/28/16 Unknown History Hydrochlorothiazide 25 mg PO QHS 11/28/16 11/28/16 Unknown History Levothyroxine [Synthroid] 75 microgm PO QHS 11/28/16 11/28/16 Unknown History Omeprazole [Prilosec] 40 mg PO QHS 11/28/16 11/28/16 Unknown History RAMIpril [Altace] 10 mg PO QHS 11/28/16 11/28/16 Unknown History Hydrocodone/APAP 5 mg/325 mg 1 - 2 each PO Q6H PRN PRN #25 11/29/16 Unknown Rx [[place]-5] tablet Hyoscyamine Subl [Levsin-Sl] 0.25 mg SL Q6H PRN PRN #30 tablet 11/29/16 Unknown Rx - History of Present Illness -Gen Adult Nature of Presenting Problems: 66 yo F presents to the ER after having a scope done at [place] this morning. Pt states the pain in her vagina is severe and she is in tears. The told her to stay overnight, but pt refused. Pt is also bleeding and has taken 2 Tramadol, which has not helped pain. Location of Pain/Injury: reports: pelvis Pain Radiation: reports: no radiation Quality of Pain: reports: cramping Severity: reports: moderate Onset/Duration: reports: just prior to arrival Timing: reports: still present Modifying Factors: improves with: nothing Associated Symptoms: reports: denies symptoms Review of Systems - Adult - REVIEW OF SYSTEMS - ADULT Constitutional: denies: chills, fever Cardiovascular: denies: chest pain, palpitations Respiratory: denies: cough, shortness of breath Gastrointestinal: denies: abdominal pain, nausea, vomiting Genitourinary: reports: see HPI. denies: hesitency All Other Systems: Reviewed and Negative Past History - Adult - PAST MEDICAL HISTORY-ADULT Review of Records: reports: Old Records Reviewed, Nursing Assessment Review, Medications Reviewed Major Childhood Illnesses: reports: denies history Cardiovascular: reports: HTN, hyperlipidemia Gastrointestinal: reports: cancer (stomach cancer; malt lymphoma, adenocarcinoma ), GERD Genitourinary: reports: cancer Endocrine/Immune: reports: Diabetes - IMMUNIZATION STATUS Childhood Immunizations: See Nurse Assessment Flu Vaccine: See Nurse Assessment Physical Exam-General - CONSTITUTIONAL General Appearance: alert, mild distress - HEAD, EARS, NOSE, MOUTH & THROAT HENMT: normocephalic/atraumatic, moist mucous membranes - RESPIRATORY Respiratory: chest non-tender, lungs clear - CARDIOVASCULAR Cardiovascular: normal peripheral pulses, regular rate, rhythm - MUSCULOSKELETAL Extremity: normal range of motion, non-tender - SKIN Integumentary: normal color, normal turgor Progress - PLAN OF CARE/RESULTS Progress/Plan/Lab Results: Vital Signs - 8 hr 11/27/16 20:24 Temperature 98.5 F Pulse Rate 84 Respiratory Rate 20 Blood Pressure 122/71 O2 Sat by Pulse Oximetry 100 Result Diagrams: 11/29/16 05:20 11/29/16 05:20 - CONSULTS/PCP/HOSPITALIST Notification #1 *Consult/PCP/Hospitalist*: Dr who did procedure this morning Time Discussed: 23:34 Reason/Comments: see if pt should be admitted Consult Disposition: other (will not admit) #2 Consult: Hospitalist- [place] Time Discussed: 00:05 Reason/Comments: admit Consult Disposition: Admit Departure - Departure Time of Disposition Decision: 23:43 DIAGNOSIS: Post-op pain, Dehydration Disposition: ADMITTED INPATIENT 09 Certified Medical Emergency: Emergent Condition: Good - Critical Care Note This patient required my direct & personal management of CC.: No This chart was documented by the indicated scribe, (Fish Hernánedz Scribe) and accurately reflects the services I performed and decisions made by me, Jordon Lerma DO, as attested by the provider's signature.
== END 2016-11-29 13:35 | disposition home or self-care (01) ==
LOC: P.MEDSURG 20:16 → P.ED 20:16 → OBSVTOIN 11-28 00:39
PROVIDERS: ATTEND Family Medicine